=== PATIENT | male | born 1995 | race Caucasian/White ===

== ENCOUNTER 2023-01-09 08:05 | Outpatient (CLI) | payer OTHER ==
--- NOTE | 2023-01-10 10:28 | XRAY Report ---
PROCEDURE: Ankle 3 View LT INDICATIONS: PAIN IN LEFT ANKLE TECHNIQUE: 3 views of the ankle were acquired. COMPARISON: None. FINDINGS: Bones: No fractures or dislocations. Ankle mortise is normally aligned. No suspicious bony lesions . Soft tissues: Normal tibiotalar joint effusion. Achilles tendon appears normal. IMPRESSION: No acute bony abnormality. If clinical symptoms persist, consider a follow-up exam in 7-10 days or ad vanced imaging such as CT or MRI. Reviewed by: Kirsten Recio MD on 01/10/2023 10:26 AM PDT Approved by: Kirsten Recio MD on 01/10/2023 10:26 AM PDT Station ID: [id number]
== END 2023-01-09 08:06 | disposition home or self-care (01) ==
LOC: DI.N 08:05
PROVIDERS: ATTEND Physician Assistant
DX: M25.572 Pain in left ankle and joints of left foot (principal)